=== PATIENT | male | born 1935 | race Caucasian/White ===

== ENCOUNTER 2019-03-10 09:28 | Day surgery (SDC) | payer MEDICARE, OTHER ==
[2019-03-10] VITALS (8 sets, daily range): BP systolic 100–167; BP diastolic 58–93; PULSE 54–61; TEMP 97.4–98
[~2019-03-10] VITALS: Ht 188.1 cm; Wt 75.0 kg
[2019-03-10] MEDS ORDERED: IMITREX50 MG PO (09:41)
[2019-03-10] MEDS ORDERED: NORVASC2.5 MG PO (09:42)
[2019-03-10] MEDS ORDERED: DESYREL 50MG50 MG PO (09:42)
[2019-03-10] MEDS ORDERED: ZANTAC 150150 MG PO (09:43)
[2019-03-10 10:07] LABS: HEMATOCRIT 44.5 % (42.0-52.0); HEMOGLOBIN 14.4 g/dl (13.5-18.0); MEAN CELL VOLUME 103 fl (80.0-100.0); MEAN CORPUSCULAR HEMOGLOBIN 33 pg (27.0-31.0); MEAN CORPUSCULAR HGB CONC 32 g/dl (33.0-37.0); MEAN PLATELET VOLUME 10.4 fl (7.4-10.4); PLATELET COUNT 138 K/mm3 (130-400); RED BLOOD COUNT 4.34 M/mm3 (4.20-5.60); REDCELL DISTRIBUTION WIDTH-CV 12.5 % (11.5-14.5)
[2019-03-10 10:09] LABS: PROTHROMBIN TIME 11.1 SECONDS (9.7-12.8)
[2019-03-10 10:12] LABS: CREATININE, serum 1.12 (0.66-1.25); POTASSIUM 4.2 mmol/L (3.4-5.0)
[2019-03-10] MEDS ORDERED: TYLENOL 325MG325 MG PO (12:58)
[2019-03-11 05:00] VITALS: BP 112/56; PULSE 61; TEMP 98.1
[2019-03-11 08:06] VITALS: BP 116/69; PULSE 60; TEMP 97.5
[2019-03-11] MEDS ORDERED: CLEOCIN HCL300 MG PO (11:06)
[2019-03-11] MEDS ORDERED: TENORMIN 5050 MG/TAB PO (11:07)
[2019-03-11 11:41] VITALS: BP 111/62; PULSE 59; TEMP 97.5
== END 2019-03-11 13:43 | disposition home or self-care (01) ==
LOC: COL.CAR 09:28 → MEDICAL 12:24 → COL.CAR 03-11 13:43
PROVIDERS: Internal Medicine Cardiovascular Disease
DX: I49.5 Sick sinus syndrome (principal); N40.1 Benign prostatic hyperplasia with lower urinary tract symptoms; R33.9 Retention of urine, unspecified; F32.9 Major depressive disorder, single episode, unspecified; G43.909 Migraine, unspecified, not intractable, without status migrainosus; I10 Essential (primary) hypertension; G47.00 Insomnia, unspecified; Z85.828 Personal history of other malignant neoplasm of skin; Z88.7 Allergy status to serum and vaccine; Z88.0 Allergy status to penicillin; Z87.891 Personal history of nicotine dependence; Z80.9 Family history of malignant neoplasm, unspecified; Z82.49 Family history of ischemic heart disease and other diseases of the circulatory system; I47.1 Supraventricular tachycardia
CPT/HCPCS: OP; C1785; C1894; C1898; J2250; J3010; J3370; J7030; J7050